=== PATIENT | female | born 1980 | race Caucasian/White ===

== ENCOUNTER 2018-06-08 09:44 | Outpatient (REF) | payer BC, SELFPAY ==
[2018-06-08 14:46] LABS: Vitamin B12 386 pg/mL (193-986)
[2018-06-08 14:56] LABS: Folate > 20.0 ng/mL (8.6-20.0)
== END 2018-06-08 10:04 ==
LOC: NCHCN 09:44
PROVIDERS: PCP Family Medicine; Visit Provider Family Medicine
DX: R20.9 Unspecified disturbances of skin sensation (principal)
CPT/HCPCS: 82607; 82746

== ENCOUNTER 2018-07-27 16:05 | Outpatient (REF) | payer BC, SELFPAY ==
[2018-07-27 18:54] LABS: HCT 41.8 % (36.0-46.0); Mean Corp. HGB Concentration 33.5 g/dL (32.0-36.0); Mean Corpuscular Hemoglobin 31.5 pg (27.0-33.0); Mean Corpuscular Volume 94.1 fL (80-95); Mean Platelet Volume 9.7 fL (8.0-11.0); Platelet Count 297 x1000/uL (130-400); RBC 4.44 m/cumm (4.00-5.20); RBC Distribution Width 12.8 % (11.7-14.6); White Blood Cell Count 9.24 k/cumm (4.4-10.8)
[2018-07-27 20:04] LABS: ALT 19 U/L (12-78); AST 12 U/L (15-37); Albumin 3.7 g/dL (3.4-5.0); Alkaline Phosphatase 52 U/L (46-116); Anion Gap 8.2 mmol/L (3-11); BUN 13 mg/dL (7-18); Bilirubin, Total 0.2 mg/dL (0.2-1.0); CO2 29.8 mmol/L (21.0-32.0); CREATININE 0.87 mg/dL (0.55-1.02); Calcium 8.8 mg/dL (8.5-10.1); Chloride 103 mmol/L (98-107); Ferritin 19 ng/mL (8-388); Glucose 77 mg/dL (70-100); Potassium 3.7 mmol/L (3.5-5.1); Sodium 141 mmol/L (136-145); TSH (W/Ref FT4) 1.19 uIU/mL (0.358-3.74); Total Protein 6.8 g/dL (6.4-8.2); Vitamin B12 975 pg/mL (193-986)
== END 2018-07-27 16:25 ==
LOC: NCHCN 16:05
PROVIDERS: PCP Family Medicine; Visit Provider Family Medicine
DX: R53.83 Other fatigue (principal)
CPT/HCPCS: 80053; 85027; 82607; 82728; 84443

== ENCOUNTER 2018-08-12 07:58 | Day surgery (SDC) | payer BC, SELFPAY ==
[2018-08-12 08:08] VITALS: BP 132/54; PULSE 88; RESP 20; TEMP 37; O2SAT 100
[2018-08-12] MEDS: Lidocaine 2% Multi-Dose 50 ML VIAL (09:28)
--- NOTE | 2018-08-12 09:52 | DSE_ITS ---
Discharge Plan Disposition Patient Disposition: HOME Condition: Improving Discharge Details Reason For Visit: (R) CTS Attending Provider: Miguel Pelaez Primary Care Provider: Skye Cruz Home Meds and New Rx's Prescriptions: No Action multivitamin tablet 1 tab PO DAILY RF: 0 cyanocobalamin (vitamin B-12) [Vitamin B-12] 1,000 mcg tablet 1,000 mcg PO DAILY RF: 0 Discharge Instructions Additional Instructions: KEEP YOUR RIGHT HAND ELEVATED ABOVE HEART LEVEL MUCH POSSIBLE FOR THE NEXT 48 HOURS. EXERCISE YOUR FINGERS AND THUMB COMFORT ALLOWS. YOU MAY LOOSEN THE WRIST SPLINT AND/OR THE UNDERLYING ELKE BANDAGE IF THEY FEEL TOO TIGHT. EXPECT SOME BLOODY DRAINAGE ON THE UNDERLYING GAUZE BANDAGES. FOR SHOWERING TOMORROW, COVER YOUR WRIST AND HAND WITH A PLASTIC BAG AND A RUBBER BAND ABOUT THE UPPER FOREARM TO KEEP THE WOUND DRY. ON 08/14/18, YOU MAY REMOVE ALL OF YOUR BANDAGES AND GET YOUR INCISION WET IN THE SHOWER WITH SOAP AND WATER. GENTLY PAT THE STITCHES DRY AND COVER THEM WITH GAUZE OR EXTRA- LARGE BANDAIDS. RESUME NORMAL USE TOLERATED GOING WITHOUT THE SPLINT SOON YOU ARE COMFORTABLE. FOLLOW-UP WITH DR. PELAEZ IN 1 WEEK TO 10 DAYSFOR STITCH REMOVAL. TAKE YOUR REGULAR MEDICATIONS BEFORE. TAKE TYLENOL , IBUPROFEN OR ALEVE FOR MILDER PAIN. TYLENOL MAY BE TAKEN AT THE SAME TIME ALEVE OR AT THE SAME TIME IBUPROFEN THEY ARE METABOLIZED DIFFERENTLY AND ARE NOT CROSS TOXIC. TAKE NORCO (HYDROCODONE 5/325MG) 1-2 EVERY 4-6 HOURS FOR MORE SERIOUS PAIN. [facility] REGULATIONS LIMIT THE AMOUNT OF NORCO THAT CAN BE PRESCRIBED TO 18 TABLETS. Stand Alone Forms: Luanne Huffman (JARROD) Equipment/Supplies: Brace Activity:: Elevate Remove Dressings/Wound Care:: 48 hours Shower/Bathe:: 48 hours Diet:: As Tolerated Discharge Orders Discharge Orders: Discharge Order (Routine); Ordered 08/12/18 Ordered By: Miguel Pelaez DS: Data Vitals/I&O Vitals and I&O: Vital Signs Temperature 98.6 F 08/12/18 08:08 Pulse 88 08/12/18 08:08 Respiratory Rate 20 08/12/18 08:08 Respiratory Depth Normal 08/12/18 08:08 Blood Pressure 132/54 L 08/12/18 08:08 Pulse Oximetry 100 08/12/18 08:08 Oxygen Delivery Method Room Air 08/12/18 08:08 Oxygen Flow Rate 0 08/12/18 08:08 Pain Level 0 08/12/18 08:08 Intake & Output 08/11/18 08/11/18 08/12/18 11:59 23:59 11:59 Weight 224 lb 13.944 oz
--- NOTE | 2018-08-12 11:53 | ROE_ITS ---
REPORT OF OPERATIVE PROCEDURE DATE OF PROCEDURE August 12, 2018 PREOPERATIVE DIAGNOSES Chronic numbness right median and ulnar nerve distributions of the hand. Probable carpal tunnel syndr ome, question cubital tunnel syndrome. POSTOPERATIVE DIAGNOSES Chronic numbness right median and ulnar nerve distributions of the hand. Probable carpal tunnel syndr ome, question cubital tunnel syndrome. PROCEDURE Right open carpal tunnel release. SURGEON Miguel Oh M.D. DIMENSIONAL INTEGRATION ENGINEER Nurse. ANESTHESIA 2% Lidocaine plain. INDICATIONS This patient has a complex numbness and pain pattern in her right hand, which is suggestive of carpal tunnel syndrome, but in addition, there are elements that also suggest possible cubital tunnel syndr ome. She underwent EMG nerve conduction studies by Dr. Hadley, who felt that there was some invo lvement of the right ulnar nerve at the elbow. However, her exam was more typical of carpal tunnel sy ndrome with the patient having some episodes of intermittent numbness involving the little finger. I felt that some of her symptoms which was pain radiating up the forearm into the right shoulder could be related to carpal tunnel syndrome or some other condition, however, nothing was found electrodiagn ostically to suggest a nerve root problem or a chronic brachial plexopathy. I felt that the simplest way to proceed would be to do an open carpal tunnel release, this would decompress the ulnar nerve a t Guyon canal at the same time, and therefore would possibly mitigate against the need for doing anyt siobhan about the ulnar nerve at the elbow. I discussed this in detail and reviewed it with the patient and she understood and wished to proceed. I saw her approximately two weeks ago and went over all of these factors again today. I met the patient in the Day Surgery holding area and marked her right austni d. DESCRIPTION OF PROCEDURE The patient was taken to the Operating Suite, and his right hand was prepped with ChloraPrep. Timeout was instituted. The universal carpal tunnel incision was marked on her right hand; this was centered over the ring finger ray. Care was taken to deviate the incision in an ulnar direction as it crossed the flexion crease of the wrist, so as to prevent injury to the palmar cutaneous branch of the media n nerve. After ensuring anesthesia, the incision was made with Loupe magnification and a #15-scalpel blade. The incision was carried down deeply to the softer tissues by a combination of sharp and deniz nt dissection. The transverse carpal ligament was easily identified. Under direct vision, the ligamen t was incised. A complete release was done from the distal portion of the antebrachial fascia to the termination of the transverse carpal ligament near the arterial arcade. The underlying median nerve h ad a characteristic flattened portion in its mid point. There was mild tenosynovitis. There were no l oose bodies, foreign bodies or ganglion cysts on the flexor tendons. The patient flexed and extended her fingers fully so that I gained good visualization of the flexor tendons. I then irrigated the inc ision with saline. The skin was closed with sutures of 5-0 Ethilon, alternating chyp-gkj-ymk-near ret ention-type sutures along with simple sutures. The wound was dressed with Xeroform gauze, 4x4s, a 3-i nch conforming gauze bandage, a 3-inch Mingo wrap, and a commercial wrist immobilizer. She was taken t o the Recovery Room in satisfactory condition and tolerated the procedure well. Instructions were pro vided and were reiterated to her.
== END 2018-08-12 10:10 | disposition home or self-care (01) ==
PROVIDERS: PCP Family Medicine; Visit Provider Orthopaedic Surgery
PROC: (CPT 64721; principal; 2018-08-12 08:45)
DX: G56.01 Carpal tunnel syndrome, right upper limb (principal)
CPT/HCPCS: 64721; NC; L3908

== ENCOUNTER 2020-05-02 12:49 | Outpatient (REF) | payer BC, SELFPAY ==
[2020-05-02 14:21] LABS: HCT 43.5 % (36.0-46.0); HGB 14.2 g/dL (11.2-15.7); MCH 31.4 pg (27.0-33.0); MCHC 32.6 % (32.0-36.0); MCV 96.2 fL (80-95); MPV 9.5 fL (8.0-11.0); Platelet Count 320 10^3/uL (130-400); RBC 4.52 10^6/uL (3.93-5.22); RDW 12.8 % (11.7-14.6); RDW-SD 45.6 fL; WBC 6.98 10^3/uL (4.4-10.8)
[2020-05-02 14:55] LABS: Ferritin 13 ng/mL (8-252); Vitamin B12 512 pg/mL (193-986)
== END 2020-05-02 13:09 ==
LOC: NCHCN 12:49
PROVIDERS: PCP Family Medicine; Visit Provider Family Medicine
DX: R53.83 Other fatigue (principal)
CPT/HCPCS: 85027; 82607; 82728; 84443

== ENCOUNTER 2021-03-03 12:44 | Outpatient (REF) | payer BC, SELFPAY ==
--- NOTE | 2021-03-03 11:45 | PAPFT_PTH ---
PATIENT: Arlin Dunn LOC: [facility]#:[id number] AGE/SX: 40/F ROOM: RE03/03/[address]: Skye Cruz : 1980 BED: DIS: 03/03/2021 SPEC #: [id number] RECD: 03/03/21 18:04 STATUS: DENNY ASH #: [id number] ZEESHAN: 03/03/21 11:[address]: Skye Cruz DEPT: [facility] Cytology RECD BY: Aracelis Victoria Tissues: 1 - CX/ENDOCX FOR PAP SMEARS Procedures: PAP THIN PREP/UVM Screening HPV DNA PROBE Comments: [id number]
[2021-03-03 15:46] LABS: Iron 87 ug/dL (50-170); Total Iron Binding Capacity 357 ug/dL (250-450); Transferrin Sat 24 % (15-50)
[2021-03-03 15:50] LABS: Hemoglobin A1C 5.3 % (<5.7)
[2021-03-03 16:12] LABS: ALT 30 U/L (14-59); AST 14 U/L (15-37); Albumin 3.8 g/dL (3.4-5.0); Alkaline Phosphatase 59 U/L (46-116); BUN 21 mg/dL (7-18); Bilirubin, Total 0.3 mg/dL (0.2-1.0); CREATININE 0.8 mg/dL (0.55-1.02); Calculated LDL 112 mg/dL (<100); Chloride 104 mmol/L (98-107); Cholesterol 194 mg/dL (<200); Ferritin 15 ng/mL (8-252); Glucose 99 mg/dL (74-106); HDL Cholesterol 74 mg/dL (40-60); Magnesium 1.9 mg/dL (1.8-2.4); Potassium 3.7 mmol/L (3.5-5.1); Sodium 140 mmol/L (136-145); Total Protein 7.3 g/dL (6.4-8.2); Triglyceride 42 mg/dL (<150); Vitamin B12 345 pg/mL (193-986)
== END 2021-03-03 12:45 | disposition home or self-care (01) ==
LOC: NCHCN 12:44
PROVIDERS: PCP Family Medicine; Visit Provider Family Medicine
DX: Z00.00 Encounter for general adult medical examination without abnormal findings (principal); Z12.4 Encounter for screening for malignant neoplasm of cervix; Z11.51 Encounter for screening for human papillomavirus (HPV); R03.0 Elevated blood-pressure reading, without diagnosis of hypertension; R25.2 Cramp and spasm; Z13.1 Encounter for screening for diabetes mellitus; Z13.220 Encounter for screening for lipoid disorders
CPT/HCPCS: 80053; 80061; 88142; 82607; 82728; 83036; 83540; 83550; 83735; 87624

== ENCOUNTER 2023-02-26 18:15 | Outpatient (REF) | payer BC, SELFPAY ==
[2023-02-26 14:29] LABS: HCT 43.4 % (36.0-46.0); HGB 14.6 g/dL (11.2-15.7); MCH 32.4 pg (27.0-33.0); MCHC 33.6 % (32.0-36.0); MCV 96 fL (80-95); MPV 9.6 fL (8.0-11.0); Platelet Count 365 10^3/uL (130-400); RBC 4.51 10^6/uL (3.93-5.22); RDW 12.9 % (11.7-14.6); RDW-SD 46.1 fL; WBC 6.57 10^3/uL (4.4-10.8)
[2023-02-26 15:09] LABS: Ferritin 43 ng/mL (8-252); Vitamin B12 631 pg/mL (193-986)
[2023-02-26 15:10] LABS: Hemoglobin A1C 5.2 % (<5.7)
== END 2023-02-26 18:16 | disposition home or self-care (01) ==
LOC: NCHCN 18:15
PROVIDERS: PCP Family Medicine; Visit Provider Family Medicine
DX: R03.0 Elevated blood-pressure reading, without diagnosis of hypertension (principal); E61.1 Iron deficiency; Z83.3 Family history of diabetes mellitus; Z13.1 Encounter for screening for diabetes mellitus
CPT/HCPCS: 85027; 82607; 82728; 83036

== ENCOUNTER 2023-03-05 12:09 | Outpatient (CLI) | payer BC, SELFPAY | END 2023-03-05 12:10 | disposition home or self-care (01) | LOC: LBO 12:10 | PROVIDERS: PCP Family Medicine; Visit Provider Family Medicine | DX: J98.01 Acute bronchospasm (principal); L50.8 Other urticaria | CPT/HCPCS: 36415; 83520 ==

== ENCOUNTER 2023-04-01 02:28 | Outpatient (CLI) | payer BC, SELFPAY ==
--- NOTE | 2023-04-01 11:45 | DI.MAMMO_ITS ---
Exam(s) MAMMO SCREENING EXAM: MAMMO SCREENING CLINICAL HISTORY: SCREENING, Z12.39 TECHNIQUE: Mammograms were interpreted according to the usual protocol including computer analysis w [employer] CAD system, tomosynthesis and C-view imaging. COMPARISON: No exams were available for comparison. Baseline examination. FINDINGS: The breasts are composed of scattered fibroglandular densities, Breast Density category B. No suspicious masses or suspicious microcalcifications are seen. No skin thickening or abnormal axillary lymph nodes are seen. IMPRESSION: BI-RADS Category 1, Negative mammogram Yearly screening mammography is recommended. Breast Density - Category B, scattered fibroglandular densities. A negative radiographic report should not delay biopsy if a dominant or clinically suspicious mass is present. Up to ten percent of cancers are not identified on mammography. A negative report may reinforce clinical impression. Adenosis and dense breasts may obscure an underlying neoplasm. False positive reports average 6 to 10%. Patient will receive a letter notifying them of these results.
== END 2023-04-01 02:48 ==
LOC: DI 02:28
PROVIDERS: PCP Family Medicine; Visit Provider Family Medicine
DX: Z12.31 Encounter for screening mammogram for malignant neoplasm of breast (principal)
CPT/HCPCS: 77063; 77067

== ENCOUNTER 2023-06-02 09:35 | Outpatient (REF) | payer BC, SELFPAY ==
[2023-06-02 16:01] LABS: HCT 43.6 % (36.0-46.0); HGB 14.6 g/dL (11.2-15.7); MCHC 33.5 % (32.0-36.0); MCV 96 fL (80-95); Platelet Count 321 10^3/uL (130-400); RBC 4.56 10^6/uL (3.93-5.22); RDW-SD 46.5 fL; WBC 6.49 10^3/uL (4.4-10.8)
[2023-06-02 17:05] LABS: HCG Qual (Serum) Negative
[2023-06-02 22:28] LABS: FSH 6.4 mIU/mL (See Note)
== END 2023-06-02 09:36 | disposition home or self-care (01) ==
LOC: NCHCN 09:35
PROVIDERS: PCP Family Medicine; Visit Provider Family Medicine
DX: N93.8 Other specified abnormal uterine and vaginal bleeding (principal); R53.83 Other fatigue
CPT/HCPCS: 85027; 83001; 83002; 84443; 84703; 85025

== ENCOUNTER 2024-03-20 19:17 | Outpatient (REF) | payer BC, SELFPAY ==
[2024-03-20 19:31] LABS: HCT 41.8 % (36.0-46.0); MCH 32.9 pg (27.0-33.0); MCHC 33.5 % (32.0-36.0); MCV 98 fL (80-95); MPV 9.8 fL (8.0-11.0); Platelet Count 305 10^3/uL (130-400); RBC 4.26 10^6/uL (3.93-5.22); RDW 13.4 % (11.7-14.6); RDW-SD 48.3 fL; WBC 8.96 10^3/uL (4.4-10.8)
[2024-03-20 20:22] LABS: Ferritin 47 ng/mL (8-252); Magnesium 1.8 mg/dL (1.8-2.4)
[2024-03-22 10:00] LABS: ALT 23 U/L (14-59); AST 12 U/L (15-37); Alkaline Phosphatase 43 U/L (46-116); Anion Gap 10.5 mmol/L (3-11); BUN 19 mg/dL (7-18); Bilirubin, Total 0.49 mg/dL (0.2-1.0); CO2 28.5 mmol/L (21.0-32.0); CREATININE 0.9 mg/dL (0.55-1.02); Calcium 9.5 mg/dL (8.5-10.1); Chloride 103 mmol/L (98-107); Estimated GFR 80.84 (mL/min/1.73m2); Glucose 95 mg/dL (74-106); Sodium 142 mmol/L (136-145); Total Protein 6.9 g/dL (6.4-8.2)
== END 2024-03-20 19:18 | disposition home or self-care (01) ==
LOC: NCHCN 19:17
PROVIDERS: PCP Family Medicine; Visit Provider Family Medicine
DX: F10.10 Alcohol abuse, uncomplicated (principal); R25.2 Cramp and spasm; D64.9 Anemia, unspecified
CPT/HCPCS: 80053; 85027; 82728; 83735

== ENCOUNTER 2025-07-17 00:17 | Outpatient (CLI) | payer BC, SELFPAY ==
--- NOTE | 2025-07-17 | DI.MAMMO_ITS ---
Exam(s) MAMMO SCREENING EXAM: MAMMO SCREENING CLINICAL HISTORY: SCREENING, Z12.31 TECHNIQUE: Bilateral full field digital CC and MLO mammographic images were obtained with 3D tomosynthesis and utilizing computer aided detection (CAD). COMPARISON: Comparison is made with prior examinations. FINDINGS: The patient has had a significant weight loss since the prior examination. Masses/Architectural Distortion: No suspicious masses or areas of architectural distortion are present. Microcalcifications: No suspicious pleomorphic-type are seen. Skin Thickening/Nipple Retraction: None. IMPRESSION: 1. No significant interval change with no specific features of malignancy noted. 2. Unless there is more urgent need, screening mammography is recommended, as per [employer] guidelines. BI-RADS Category 1 - Negative Breast Density - Category B - There are scattered areas of fibroglandular density. Breast density Category C or D implies that the patient has dense breast tissue. Dense breast tissue can make it harder to find cancer on a mammogram. Dense breast tissue is also associated with an increased risk of breast cancer. This information about the result of the mammogram report was provided to the patient to raise their awareness. Use this report when you speak with the patient about their risks for breast cancer, which includes their family history. At that time, you may recommend additional screening tests (Ultrasound or MRI) as these tests may add significant information. A negative radiographic report should not delay biopsy if a dominant or clinically suspicious mass is present. Up to ten percent of cancers are not identified on mammography. A negative report may reinforce clinical impression. Adenosis and dense breasts may obscure an underlying neoplasm. False positive reports average 6 to 10%. Patient will receive a letter notifying them of these results.
== END 2025-07-17 00:37 ==
LOC: DI 00:17
PROVIDERS: PCP Family Medicine; Visit Provider Family Medicine
DX: Z12.31 Encounter for screening mammogram for malignant neoplasm of breast (principal)
CPT/HCPCS: 77063; 77067